=== PATIENT | female | born 1985 | race Caucasian/White ===

== ENCOUNTER 2018-08-07 19:45 | Inpatient (IN) | payer OTHER ==
[2018-08-07] MEDS: Lactated Ringer's 1,000 ML IV SCH (21:00)
--- NOTE | 2018-08-07 21:15 | OBHP ---
Datetime: 08/07/2018 20:36 IP Adm Impression: Term, intrauterine ; No Active Labor; Intact Membranes IP Chief Complaint Other: Low back pain; vaginal spotting IP Adm Impression Other: Decreased fetak mvement; latent labor; hypothyroid IP Admit Plan: Admit to unit; Initiate labor protocol Admit Comment, IP Provider: Patient seen, evaluated and examined at 8 hours 32 y.o. , LMP 11/06/17, LYLE 08/13/18, EGA 39w 1d by sono 03/09/18 at 18w 1d, C/O low back pain and vaginal spotting noted at wiping after urinating - both at 1600 hours. Decreased AFM in the precedin g 2-3 hours. Denies LOF or Ctx, though reports vaginal pressure. NB: during evaluation, reported pain scale 5/10 with a Ctx. care: [facility] - hypothyroid - diagnosed this ; "poor fe deni growth". 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 Denies STIs, abnormal Pap, myomata PMH: no prior h/o hypothyroid; denies asthma, HTN, DM PSH: denies NKDA Meds: PNV, levothyroxine 50 micrograms p.o. once daily Soc Hx: denies tobacco, illicit drug or EtOH use. x 4 years. Worked in [employer] until 2 weeks ago Fam Hx: Mother alive 60 y.o. Father alive 62 y.o. - both, no med issues P.E.: as above. Petite, in NAD. Awake, alert, oriented to time, person and place. Assessment: 32 y.o P0, 39w 1d, latent phase of labor. Vaginall spotting is passage of mucous plug. Decreased movement - category 1 tracing. GBS (-). Hypothyroid on meds. D/W patient pain option s. Patient is clinically stable Plan: 1) Admit 2) NPO 3) Admission labs 4) Continuous EFM 5) Continue levothyrone once daily (next dose 2/) 6) Epidural, upon request 7) Conservative managment 8) Anticipate vaginal delivery Pelvic Type - PN: Adequate Extremities - PN: Normal Abdomen - PN: Normal Back - PN: Normal Breast - PN: Not Done Lungs - PN: Normal Heart - PN: Normal Thyroid - PN: Not Done Neurologic - PN: Normal HEENT - PN: Normal General - PN: Normal Weight - Estimated: 6lb Presentation-Admit: Vertex FHR - Baseline A Provider: 150 Membranes, Provider: Intact Contraction Comments Provider: 4 minutes Comments, ACOG Physical Exam: Abdomen: Gravid. Firm with Ctx; fundal height 38.5 cm Bedside: All other systems reviewed and are negative Gestation - Est Wks by US: 39w 1d IP Hx Assessment: The History has been Reviewed and is Current EGA AdmitDate IP: 39.1 Vital Signs Provider: Reviewed; Within Normal Limits IP Indication for Induction: Not Applicable IP Chief Complaint: Other NICHD Variability Prov Fetus A: Moderate 6-25bpm NICHD Accel Fetus A IP Provider: 15X15 FHR Category Provider Fetus A: Category I NICHD Decel Fetus A IP Provider: None Dilatation, Provider: 4 Effacement, Provider: 70 Station, Provider: -3 Genitourinary Exam: Normal DTRs - PN: Not Done
[2018-08-07 21:39] LABS: BASO % 0.1 % (0.0-2.0); EOS # 0.3 K/uL (0.0-0.7); EOS % 1.9 % (0.0-4.0); HEMOGLOBIN 13.2 g/dL (11.0-16.0); LYMPH # 2.3 K/uL (1.0-4.3); LYMPH % 16.3 % (20.0-40.0); MEAN CELL VOLUME 91.1 fL (81.0-99.0); MEAN CORPUSCULAR HEMOGLOBIN 30.2 pg (27.0-31.0); MEAN CORPUSCULAR HGB CONC 33.2 g/dL (33.0-37.0); MEAN PLATELET VOLUME 9.4 fL (7.2-11.7); MONO % 7.4 % (0.0-10.0); NEUT # 10.6 K/uL (1.8-7.0); NEUT % 74.3 % (50.0-75.0); NRBC % 0.1 % (0.0-2.0); RBC 4.37 Mil/uL (3.80-5.20); RED CELL DISTRIBUTION WIDTH 13.6 % (11.5-14.5); WHITE BLOOD COUNT 14.3 K/uL (4.8-10.8)
[2018-08-07 21:50] LABS: ALB/GLOB RATIO 1.3 (1.0-2.1); ALBUMIN 3.7 g/dL (3.5-5.0); AST/SGOT 15 U/L (14-36); BLOOD UREA NITROGEN 7 mg/dL (7-17); CALCIUM 9.4 mg/dl (8.6-10.4); GFR NON-AFRICAN AMERICAN > 60
[2018-08-07 21:57] LABS: ALT/SGPT < 6 U/L (9-52)
[2018-08-07 22:03] LABS: SQUAMOUS EPITHIAL 5 /hpf (0-5); URINE BACTERIA FEW (<OCC); URINE BILIRUBIN NEGATIVE (NEGATIVE); URINE CLARITY Clear (Clear); URINE GLUCOSE (UA) NORMAL (Normal); URINE PROTEIN NEGATIVE (NEGATIVE); URINE UROBILINOGEN NORMAL mg/dL (0.2-1.0)
[2018-08-07 22:05] LABS: URINE BLOOD 2+ (NEGATIVE); URINE COLOR YELLOW (YELLOW); URINE LEUKOCYTE ESTERASE 2+ Leu/uL (Negative)
[2018-08-07] MEDS ORDERED: Bupivacaine HCl/FentaNYL Cit 100 ML EPI ONE (22:09)
--- NOTE | 2018-08-08 02:52 | OBPN ---
Datetime: 08/08/2018 02:40 IP Progress Impression: Normal progression of labor IP Procedures: Sterile Vag Exam IP Progress Plan: Continue present management; Anticipate Vaginal Delivery Contraction Comments Provider: 1-3 minutes FHR - Baseline A Provider: 150 Gestation - Est Wks by US: 39w 2d Presentation-Admit: Vertex IP Progress Note Comment: Patient c/o vaginal pressure Cervical exam: as above. Assessment: 33 y.o. P0, 39w 2d at end of Stage 1 of labor. Hypothyroid. Category 1 tracing. Clinic ally stable. Plan: 1) Anticipate vaginal delivery Vital Signs Provider: Reviewed; Within Normal Limits NICHD Accel Fetus A IP Provider: 15X15 FHR Category Provider Fetus A: Category I NICHD Variability Prov Fetus A: Moderate 6-25bpm Dilatation, Provider: 10 Effacement, Provider: 100 Station, Provider: 2+ NICHD Decel Fetus A IP Provider: None Datetime: 08/07/2018 20:36 Membranes, Provider: Intact Weight - Estimated: 6lb
[2018-08-08] MEDS: Levothyroxine 50 MCG TAB PO SCH (07:33)
[2018-08-08] MEDS ORDERED: Oxytocin 30 UNIT 30 UNITS/500 ML BAG IV SCH ×2 (08:00)
[2018-08-08] MEDS ORDERED: Phytonadione 1 mg/0.5 ml Inj (Neonatal) ONE (08:25)
[2018-08-08] MEDS ORDERED: Erythromycin 0.5% Ophth Oint 1 APPLIC/3.5 G ONE (08:25)
[2018-08-08] MEDS ORDERED: Sodium Citrate/Citric Acid 15 ml Sol ONE (08:37)
[2018-08-08] MEDS ORDERED: cefOXitin IV 2 gm in Dextrose 2 GM/50 ML BAG IVPB ONE ×2 (08:37→08:39)
[2018-08-08] MEDS ORDERED: Sodium Citrate/Citric Acid 15 ml Sol PO ONE (08:39)
[2018-08-08] MEDS ORDERED: Morphine 1 mg/ml preservative-free Inj(Duramorph) ONE (08:49)
[2018-08-08] MEDS ORDERED: Oxytocin 10 Units/ml Inj ONE ×3 (09:37→10:14)
[2018-08-08] MEDS ORDERED: Oxycodone/Acetaminophen 5/325 mg Tab PO PRN (10:06)
[2018-08-08] MEDS ORDERED: Phenylephrine 10 mg/ml Inj ONE (10:19)
[2018-08-08 10:21] LABS: BASO % 0.1 % (0.0-2.0); HEMOGLOBIN 12.2 g/dL (11.0-16.0); MEAN PLATELET VOLUME 9.8 fL (7.2-11.7)
[2018-08-08 10:24] LABS: LYMPH # 1.3 K/uL (1.0-4.3); LYMPH % 5.4 % (20.0-40.0); MEAN CORPUSCULAR HEMOGLOBIN 30.8 pg (27.0-31.0); MONO % 4.2 % (0.0-10.0); NEUT # 22.3 K/uL (1.8-7.0); NEUT % 90.3 % (50.0-75.0); PLATELET COUNT 233 K/uL (130-400); RBC 3.98 Mil/uL (3.80-5.20); RED CELL DISTRIBUTION WIDTH 13.8 % (11.5-14.5)
[2018-08-08 10:25] LABS: MEAN CELL VOLUME 93.1 fL (81.0-99.0); WHITE BLOOD COUNT 24.8 K/uL (4.8-10.8)
[2018-08-08 11:01] LABS: BANDS 9 % (0-2); LYMPHOCYTE 3 % (20-40); MONOCYTE 2 % (0-10); NEUTROPHIL 86 % (50-75); TOTAL CELLS COUNTED 100
[2018-08-08 11:02] LABS: PLATELET ESTIMATE NORMAL (NORMAL)
[2018-08-08] MEDS: Gentamicin 80 mg in 0.9% NS 80 MG/100 ML BAG IVPB SCH ×2 (13:42→21:10)
--- NOTE | 2018-08-08 16:26 | OBPN ---
Datetime: 08/08/2018 07:30 IP Progress Impression: Reassuring heart rate IP Informed Consent Obtain: Vaginal Delivery IP Procedures: Sterile Vag Exam IP Progress Plan: Continue present management; Augmentation; Anticipate Vaginal Delivery Membranes, Provider: Ruptured Amniotic Fluid Color, Provider: Clear Contraction Comments Provider: Q 2-3 minutes FHR - Baseline A Provider: 160 Gestation - Est Wks by US: 39.2 Presentation-Admit: Vertex IP Progress Note Comment: Pt seen and examined after received report from Dr. Henri COLLADO 10/100/Caput at 0 station Pushing but poor effort Cx's Q 3-4 minutes apart Will start Pitocin for augmentation to improve pushing effort SROM for about 24 hours Urine output minimal and urine very concentrated. IV fluid bolus ordered. Hope for a vaginal delivery Vital Signs Provider: Reviewed; Within Normal Limits NICHD Accel Fetus A IP Provider: 10X10 FHR Category Provider Fetus A: Category I NICHD Variability Prov Fetus A: Moderate 6-25bpm Dilatation, Provider: 10 Effacement, Provider: 100 Station, Provider: 0/caput at +1 NICHD Decel Fetus A IP Provider: None (Annotations: Data stored by CPN on behalf of user)
--- NOTE | 2018-08-08 17:58 | OBPN ---
Datetime: 08/08/2018 08:40 IP Progress Impression Other: Prolonged Rupture of Membranes IP Informed Consent Obtain: Section Delivery Contraction Comments Provider: 2-3 FHR - Baseline A Provider: 180 Gestation - Est Wks by US: 39.2 Presentation-Admit: Vertex Vital Signs Provider: Reviewed NICHD Accel Fetus A IP Provider: 10X10 FHR Category Provider Fetus A: Category II NICHD Variability Prov Fetus A: Minimal - Undetectable to <5bpm NICHD Decel Fetus A IP Provider: None Datetime: 08/08/2018 03:55 IP Progress Impression: Normal progression of labor IP Procedures: Artificial ROM; Sterile Vag Exam IP Progress Plan: Continue present management; Anticipate Vaginal Delivery Membranes, Provider: Ruptured Amniotic Fluid Color, Provider: Clear IP Progress Note Comment: Patient seen and examined at bedside. Patient reports feeling pressure. Me mbranes artificially ruptured. Fluid is clear Vital signs reviewed SVE: 10/100/0 A/P: 33 year old at 39w2d in active phase labor, s/p AROM -Continue present management -Plan discussed with Dr Henri Pal DO PGY-2 Dilatation, Provider: 10 Effacement, Provider: 100 Station, Provider: 0
[2018-08-08] MEDS: Simethicone 80 mg Chewtab PO SCH ×2 (19:45→22:00)
--- NOTE | 2018-08-08 19:53 | OBDS ---
DELIVERY PERSONNEL Delivery Doctor: Dr Leonard Scrub Nurse: Cece Huff Pot Tender: Ernestina Burger RN Anesthesiologist: Dr Rai Resident: Dr Demarco Romero MATERNAL INFORMATION Delivery Anesthesia: Epidural; Spinal Medications in Delivery: 80 units of pitocin, 250 mcg hemabate Estimated Blood Loss (ml): 800 Placenta Cultured: Yes Maternal Complications: None; Chorioamnionitis; Maternal Fever; Prolonged Second Stage > 2 Hrs RN Comments: primary , liveborn female infant 9/9, mother and in stable condit ion Provider Comments: Emergency Primary LTC C/S with delivery of a viable female from Colt Janay ech presentation (RSA) after the engaged head was pushed up from below and fetus turned transve rse. Terminal Meconium was noted and bulb syringe utilized to suction the baby's nose and mouth. Apga rs 9_9 and BW 6lbs 4 oz. Cord blood and cord pH obtained and send Placenta with 3 vessel cord and sent to Pathology after cultures also obtained and sent EBL 800 mls Mild Uterine Atony ressolved with increased Pitocin infusion and one dose of Hemabate Patient and tolerated the procedure well and remained in OR in Stable and Satisfactory con dition Dr. Max, neurosurgical physician assistant, present throughout the entire procedure. LABOR SUMMARY EDC: 08/13/2018 00:00 No. Babies in Womb: 1 Attempted: No Labor Anesthesia: Epidural LABOR INFORMATION Onset of Labor: 08/07/2018 16:30 Complete Dilatation: 08/08/2018 02:38 Oxytocin: Augmentation Group B Beta Strep: Negative Steroids Given: None Reason Steroids Not Administered: Not Applicable MEMBRANES Membranes Rupture Method: Artificial Rupture of Membranes: 08/08/2018 03:54 Length of Rupture (hrs): 5.63 Amniotic Fluid Color: Heavy Meconium Amniotic Fluid Amount: Moderate Amniotic Fluid Odor: None STAGES OF LABOR Stage 1 hrs: 10 Stage 1 min: 8 Stage 2 hrs: 6 Stage 2 min: 54 Stage 3 hrs: 0 Stage 3 min: 1 Total Time in Labor hrs: 17 Total Time in Labor min: 3 CSECTION DELIVERY Primary Indication: Arrest of Descent Other Primary Indication: Chorioamnionitis CSection Urgency: Emergency CSection Incidence: Primary Labor: Labor CSection Incision: Lower Uterine Transverse Other Sterilization Procedure: None Uterine Closure: Single-layer closure BABY A INFORMATION Infant Delivery Date/Time: 08/08/2018 09:32 Method of Delivery: Born in Route : No : N/A Forceps: N/A Vacuum Extraction: N/A Shoulder Dystocia : No SHOULDER DYSTOCIA BABY A Delivery Date/Time: 08/08/2018 09:32 PRESENTATION/POSITION BABY A Presentation: Cephalic Cephalic Presentation: Vertex Vertex Position: Right Occipital Anterior Breech Presentation: N/A PLACENTA INFORMATION BABY A Placenta Delivery Time : 08/08/2018 09:33 Placenta Method of Delivery: Manual Removal Placenta Status: Delivered SCORES BABY A Heart Rate 1 min: >100 bpm Resp Effort 1 min: Good Cry Reflex Irritability 1 min: Cough or Sneeze or Pulls Away Muscle Tone 1 min: Active Motion Color 1 min: Body [place], Extremities Blue Resuscitation Effort 1 min: Tactile Stimulation SCORE 1 MIN: 9 Heart Rate 5 min: >100 bpm Resp Effort 5 min: Good Cry Reflex Irritability 5 min: Cough or Sneeze or Pulls Away Muscle Tone 5 min: Active Motion Color 5 min: Body Cross[place], Extremities Blue Resuscitation Effort 5 min: N/A SCORE 5 MIN: 9 INFANT INFORMATION BABY A Gestational Age at Delivery: 39.2 Gestational Status: Term Infant Outcome : Liveborn Infant Condition : Stable Infant Sex: Female IDENTIFICATION/MEDS BABY A ID Band Number: [id number] ID Band Location: Left Leg; Left Arm Sensor Applied: Yes Sensor Number: [id number] Sensor Location : Cord Clamp Vitamin K Given : Not Given Erythromycin Given: Not Given WEIGHT/LENGTH BABY A Birthweight (gms): 2935 Weight (lb): 6 Weight (oz): 7 Infant Length Inches: 18.75 Length cms: 47.6 CORD INFORMATION BABY A No. Cord Vessels: 3 Nuchal Cord : N/A Cord pH Baby Arterial: 7.11 (Annotations: Data stored by CPN on behalf of user) Cord pH Baby Venous: 7.22 Cord Blood Taken: Yes Suction: Mouth; Nose; Pharynx ASSESSMENT BABY A Infant Complications: None Physical Findings at Delivery: Within Normal Limits Infant Respirations: Appears Normal Software Security Consultant/ALS Called : No Infant Care By: Sarina Rojas rN Transferred To: Remains with Mother
[2018-08-08] MEDS: Lactated Ringer's 1,000 ML IV SCH (21:26)
[2018-08-09] MEDS: Oxycodone/Acetaminophen 5/325 mg Tab PO PRN (03:02)
[2018-08-09] MEDS: Gentamicin 80 mg in 0.9% NS 80 MG/100 ML BAG IVPB SCH (04:58)
[2018-08-09] MEDS: Levothyroxine 50 MCG TAB PO SCH (06:01)
--- NOTE | 2018-08-09 09:44 | OBPPN ---
Datetime: 08/09/2018 09:11 PP Pain Prov: Within normal limits PP Nausea Prov: Present PP Flatus Prov: No PP BM Prov: No PP Heart Prov: Normal PP Lungs Prov: Normal PP C/S Incision Prov: Normal PP Comments Phys Exam Prov: Gen: no acute distress, afebrile overnight Heart: RRR, no m/r/g Lungs: CTAB, no r/r/w Abd: Soft, NTND, BS+ x4 quadrants. Incision dressings c/d/i : mild lochia, uses 1 pad per day Ext: pulses palpable (radial, PT), no edema PP Impression Prov: Normal progression PP Plan Prov: Continue present management; consult PP Progress Note Prov: Patient was seen and examined today OOB sitting up in chair in no acute distr ess. She tolerated liquid diet without n/v. She has urinated but has not passed flatus or had a BM. S he has having mild lochia. She is once every 2 hours for about 15-20 on each side. She wanted a bottle to supplement feedings, but it was explained to her that that amount of feeding was s ufficient. Denies subjective fever, chills, headache, chest pain, palpitations, swelling, numbness, t ingling. A/P: 33yo s/p POD#1 Primary Cesarian for Arrest with possible Chorioamnionitis - Copeland d/c'd - pain management with Motrin and Percocet - encourage - encourage ambulation - advance diet to regular - continue amp/gent for at least afebrile for 24 hours - morning labs haven't resulted yet. will follow up H_H and WBC Addis Sher PGY-1 IP PP Procedures: None Vital Signs Provider PP: Reviewed Vital Signs Provider Details PP: Tmax 100.4 @ 2100
[2018-08-09] MEDS: Prenatal Multivit/Folic Acid/Iron Tab PO SCH (09:59)
[2018-08-09] MEDS: Simethicone 80 mg Chewtab PO SCH ×4 (10:01→21:49)
[2018-08-09 11:45] LABS: BASO % 0.1 % (0.0-2.0); EOS # 0.1 K/uL (0.0-0.7); EOS % 0.7 % (0.0-4.0); LYMPH # 1.7 K/uL (1.0-4.3); MEAN CELL VOLUME 91.8 fL (81.0-99.0); MEAN CORPUSCULAR HEMOGLOBIN 31.5 pg (27.0-31.0); MEAN CORPUSCULAR HGB CONC 34.3 g/dL (33.0-37.0); MEAN PLATELET VOLUME 9.6 fL (7.2-11.7); MONO # 0.8 K/uL (0.0-0.8); MONO % 3.9 % (0.0-10.0); NEUT # 18.3 K/uL (1.8-7.0); NEUT % 87.3 % (50.0-75.0); PLATELET COUNT 182 K/uL (130-400); RBC 2.88 Mil/uL (3.80-5.20); RED CELL DISTRIBUTION WIDTH 14.2 % (11.5-14.5); WHITE BLOOD COUNT 20.9 K/uL (4.8-10.8)
[2018-08-09 11:53] LABS: HEMOGLOBIN 9.1 g/dL (11.0-16.0)
[2018-08-09 12:35] LABS: BANDS 6 % (0-2); EOSINOPHIL 1 % (0-4); HYPOCHROMIC SLIGHT; LYMPHOCYTE 8 % (20-40); MONOCYTE 5 % (0-10); NEUTROPHIL 80 % (50-75); PLATELET ESTIMATE NORMAL (NORMAL); TARGET CELLS SLIGHT; TOTAL CELLS COUNTED 100
[2018-08-10] MEDS: Oxycodone/Acetaminophen 5/325 mg Tab PO PRN (02:39)
[2018-08-10] MEDS: Levothyroxine 50 MCG TAB PO SCH (06:25)
[2018-08-10 07:38] LABS: BASO # 0.1 K/uL (0.0-0.2); BASO % 0.4 % (0.0-2.0); EOS # 0.2 K/uL (0.0-0.7); EOS % 1.5 % (0.0-4.0); HEMOGLOBIN 8.6 g/dL (11.0-16.0); LYMPH # 1.9 K/uL (1.0-4.3); LYMPH % 12.3 % (20.0-40.0); MEAN CELL VOLUME 91.7 fL (81.0-99.0); MEAN CORPUSCULAR HGB CONC 33.8 g/dL (33.0-37.0); MONO # 0.7 K/uL (0.0-0.8); MONO % 4.8 % (0.0-10.0); NEUT # 12.4 K/uL (1.8-7.0); RBC 2.76 Mil/uL (3.80-5.20); RED CELL DISTRIBUTION WIDTH 14.2 % (11.5-14.5); WHITE BLOOD COUNT 15.3 K/uL (4.8-10.8)
[2018-08-10] MEDS: Simethicone 80 mg Chewtab PO SCH ×5 (10:19→21:32)
[2018-08-10] MEDS: Prenatal Multivit/Folic Acid/Iron Tab PO SCH (10:19)
--- NOTE | 2018-08-10 19:15 | OBPPN ---
Datetime: 08/10/2018 07:34 PP Pain Prov: Within normal limits PP Nausea Prov: Denies PP Flatus Prov: No PP BM Prov: No PP Breasts Prov: Not Done PP Heart Prov: Normal PP Lungs Prov: Normal PP Lochia Prov: Normal PP Vulva/Perineum Prov: Normal PP Comments Phys Exam Prov: Gen: NAD, AAOx3, afebrile HEENT: EOMI, PERRLA Cardio: RRR, +s1, +s2, no murmurs, gallops, rubs Resp: normal breathing pattern, CTAB, no wheezing, rhonchi, rales GI: normal bowel sounds, tenderness to palpation in the upper and epigastric abdominal, fundal hei ght 1 finger breath below umbilicus, incision site c/d/i with marnie MSK: +5/5 muscle strength b/l in the upper and lower extremities PP Impression Prov: Normal progression; Pain PP Plan Prov: Continue present management PP Progress Note Prov: Patient was seen and examined today at bedside in no acute distress. Patient is tolerating regular diet without n/v. She is urinating with mild spotting when wiping. She is not p assing flatus nor having BM. She is ambulating in room without difficulty, will continue to walk outs ras in the halls. Her pain is not being controlled as she tries to go without asking for too many kathy n medications. She is combination breast and bottle feeding due to low breast milk volume. A/P: 33yo s/p POD#2 Primary Cesarian for Arrest and possible Chorioamnionitis - afebrile for 24 hours with decrease in WBC (24.5 -> 20.9); antibiotics discontinued yesterday - pain management with synergistic Motrin and Percocet - encourage ambulation with abdominal binder as tolerated - encourage - continue GI for BM: Colace, Senna, Simethicone - H_H drop from 12.2 to 9.1. This AM H_H 8.6/25.4 - Acute Anemia from acute blood loss - Continue with Feosol and add Colace - Stable and Satisfactory condition and recovery - Anticipate discharge home tomorrow Addis Sher PGY-1 Pt seen and examined with Dr. Sher and agree with her findings and POC IP PP Procedures: None Vital Signs Provider PP: Reviewed; Within Normal Limits
[2018-08-11] MEDS: Levothyroxine 50 MCG TAB PO SCH (06:25)
[2018-08-11 08:10] VITALS: BP 124/78; PULSE 84; RESP 18; O2SAT 98
[2018-08-11] MEDS: Simethicone 80 mg Chewtab PO SCH (09:29)
[2018-08-11] MEDS: Prenatal Multivit/Folic Acid/Iron Tab PO SCH (10:31)
--- NOTE | 2018-08-11 13:48 | OBPPN ---
Datetime: 08/11/2018 07:37 PP Pain Prov: Within normal limits PP Nausea Prov: Denies PP Flatus Prov: Yes PP BM Prov: Yes PP Heart Prov: Normal PP Lungs Prov: Normal PP Abdomen/Uterus Prov: Normal PP Lochia Prov: Normal PP Vulva/Perineum Prov: Normal PP CVA Tenderness Prov: Normal PP C/S Incision Prov: Normal PP Progress Prov: Normal PP Comments Phys Exam Prov: Gen: NAD, AAOx3 HEENT: EOMI, PERRLA Cardio: RRR, +s1, +s2, no murmurs, gallops, rubs Resp: normal breathing pattern, CTAB, no wheezing, rhonchi, rales GI: normal bowel sounds, tender to palpation in the epigastric region, fundal height at 2 finger b reath below the umbilicus, incision site c/d/i with marnie Ext: +5/5 muscle strength in the upper and lower extremities b/l PP Impression Prov: Normal progression; Pain PP Plan Prov: Continue present management; Discharge PP Progress Note Prov: Patient was seen at bedside in no acute distress. Pt reports mild epigastric discomfort stating it is from a build-up of gas. Pt is tolerating full diet and denies n/v. Pt is pas sing flatus and BM. Pt no longer has any spotting. Pt is urinating without problem and without blood. Pt ambulating well, both inside and outside of the room. Pt is both and bottle feeding . Pt is bottle feeding due to lack of milk volume, but states the volume has increased since yesterda y. Pt reports that the baby is eating well, feeding on each breast for about 30 minutes every 2 hours . A/P: 33yo s/p POD#3 Primary Cesarian for Arrest and possible Chorioamnionitis - Discharge planning, anticipate later today - Stable and Satisfactory condition and recovery - Pain management with Motrin, Percocet - Encourage ambulation and - H_H drop from 9.1 to 8.6. Acute Anemia from acute blood loss. Continue with Feosol - Continue Simethicone for gas - Discussed follow-up to remove marnie - Patient discussed with Dr. Horacio Hedrick, PGY-1 Pt seen and examined with Dr Hedrick and we discussed all of his findings and POC and agreed. IP PP Procedures: None Vital Signs Provider PP: Reviewed; Within Normal Limits
--- NOTE | 2018-08-11 13:50 | OBDCSUM ---
Datetime: 08/11/2018 09:54 Discharged to, Provider: Home Follow up at, Provider: Dr Jem chris Disch Instr Activity: Normal activity Disch Instr Diet: Regular Discharge Instructions, Provider: Routine instructions given Discharge Diagnosis, Provider: Term Delivered Discharge Time: 08/11/2018 09:54 Follow up in weeks, Provider: 1 week Contraception discussed, Prov: Yes Disch Activity Restrictions: No exercising; No lifting; No sexual activity; Nothing in vagina - Inte rcourse, tampons, douche Discharge Comment, Provider: Patient was seen at bedside in no acute distress. Pt reports mild epiga stric discomfort stating it is from a build-up of gas. Pt is tolerating full diet and denies n/v. Pt is passing flatus and BM. Pt no longer has any spotting. Pt is urinating without problem and without blood. Pt ambulating well, both inside and outside of the room. Pt is both and bottle f eeding. Pt is bottle feeding due to lack of milk volume, but states the volume has increased since . Pt reports that the baby is eating well, feeding on each breast for about 30 minutes every 2 hours. A/P: 33yo s/p POD#3 Primary Cesarian for Arrest and possible Chorioamnionitis - Discharge planning, anticipate later today - Stable and Satisfactory condition and recovery - Pain management with Motrin, Percocet - Encourage ambulation and - H_H drop from 9.1 to 8.6. Acute Anemia from acute blood loss. Continue with Feosol - Continue Simethicone for gas - Discussed follow-up to remove marnie Stable and Satisfactory condition and recovery Discharge home with instructions and Rx for Motrin, Percocet, Fe, Colace and Synthroid Contraception after Delivery: Undecided
[2018-08-11 19:21] VITALS: TEMP 98
--- NOTE | 2018-08-12 16:09 | OP ---
PROCEDURE DATE: 08/07/2018 PREOPERATIVE DIAGNOSES: 1. Intrauterine at 39.2 weeks. 2. Decreased movement/latent labored on presentation. 3. History of hypothyroidism. 4. Maternal fevered. 5. Chorioamnionitis. 6. Arrest of descent. POSTOPERATIVE DIAGNOSES: 1. Intrauterine at 39.2 weeks. 2. Decreased movement/latent labored on presentation. 3. History of hypothyroidism. 4. Maternal fevered. 5. Chorioamnionitis. 6. Arrest of descent. 7. Delivered from breech presentation. 8. Terminal meconium. 9. Mild uterine atony. PROCEDURES: 1. Emergency primary low-transverse cervical section with delivery of a viable female from the RSA position/firm breech after the engaged head was pushed from below and the fetus turned transverse which then was turned into firm breech. There was terminal meconium noted. The Apgars were 9 and 9 at 1 and 5 minutes respectively and the weight 6 pounds 4 ounces. 2. The cord blood and cold pH were obtained and sent. 3. Placenta with 3-vessel cord was sent to pathology after cultures were obtained. SURGEON: Arianna Leonard DO FILTER ASSEMBLER: Sawyer Max MD ANESTHESIA: Epidural/spinal. ANESTHESIOLOGIST: Amanuel Rai MD ESTIMATED BLOOD LOSS: 800 mL. COMPLICATIONS: None. SPECIMEN: 1. Cord blood and cold pH. 2. Placenta. PREOPERATIVE FINDINGS: As stated above, the patient presented with arrest of descent and since the head was well engaged in the pelvis at the time of delivery was pushed from below and the fetus turned transverse and then was turned into firm breech and was delivered from the RSA position. PREOPERATIVE NOTE: The procedure, the risks and the possible complications were fully reviewed with the patient to include but not exclusively hemorrhage, infection or injury to bowel, bladder, bilateral tubes and ovaries, internal blood vessels or any other internal organs. The patient verbalized understanding and requested to proceed and signed the consent. DESCRIPTION OF PROCEDURE: The patient was taken to the operating room, she was given a spinal form of anesthesia, and she was sterilely prepped and draped in the usual manner for the above named procedure. The Copeland catheter was inserted. A time-out was then carried out as indicated, and after ascertaining an adequate level of anesthesia, the procedure was initiated. The knife was utilized to make a low transverse skin incision in the suprapubic area, and utilizing the Pfannenstiel technique, the abdomen was entered. The bladder flap was developed and placed underneath the Fanta blade. The second knife was the utilized to make a low transverse uterine incision in the lower uterine segment, and it was extended horizontally with bandage scissors. The infant was noted to be OP and then delivered from the DAYANNA position. The bulb syringe was utilized to suction the naso and the oropharynx upon delivery of the head and upon completion of the delivery, which was carried out without difficulty. The cord was doubly clamped and transected, and the infant was passed to the vegetables cook in attendance for further inspection. The cord blood and the cord pH were obtained and sent and the placenta was spontaneously delivered and sent to Pathology. The uterus was exteriorized through the abdominal incision. The endometrial cavity was cleansed with a moist lap and the uterine incision was the closed utilizing a PDS suture in a full-thickness manner with an adequate closure and adequate hemostasis. Bilateral tubes and ovaries were noted to be within normal limits, and after cleaning the cul-de-sac of blood clots, the uterus was repositioned into the abdominal cavity. Bilateral gutters were also cleansed, and after ascertaining adequate hemostasis at the uterine incision, we proceeded to close the abdomen in layers. The rectus muscle was reapproximated in the midline with a few interrupted sutures of * Vicryl and incorporating the peritoneum. The fascia was closed with PDS and the skin was closed with the marnie. Sterile dressing was applied, and after evacuating the vagina of blood clots, the procedure was terminated. All instruments and sponges were accounted for x 3. The patient and the tolerated the procedure well and they both left the operating room in stable and satisfactory condition. Arianna Leonard DO
== END 2018-08-11 13:00 | disposition home or self-care (01) | DRG 370 ==
LOC: C.EROB 19:45 → C.4D 20:15 → C.4M 08-08 14:52
PROVIDERS: ADMIT Obstetrics & Gynecology; ATTEND Obstetrics & Gynecology
PROC: 10D00Z1 Extraction of Products of Conception, Low, Open Approach (ICD-10-PCS; principal; 2018-08-08)
PROC: 10907ZC Drainage of Amniotic Fluid, Therapeutic from Products of Conception, Via Natural or Artificial Opening (ICD-10-PCS; 2018-08-08)
DX: O36.8130 Decreased fetal movements, third trimester, not applicable or unspecified (principal); O32.1XX0 Maternal care for breech presentation, not applicable or unspecified; O41.1230 Chorioamnionitis, third trimester, not applicable or unspecified; O75.2 Pyrexia during labor, not elsewhere classified; O62.1 Secondary uterine inertia; O63.1 Prolonged second stage (of labor); O77.0 Labor and delivery complicated by meconium in amniotic fluid; O99.02 Anemia complicating childbirth; D62 Acute posthemorrhagic anemia; O99.284 Endocrine, nutritional and metabolic diseases complicating childbirth; E03.9 Hypothyroidism, unspecified; O36.5930 Maternal care for other known or suspected poor fetal growth, third trimester, not applicable or unspecified; Z3A.39 39 weeks gestation of pregnancy; Z37.0 Single live birth